=== PATIENT | female | born 1955 | race Caucasian/White ===

== ENCOUNTER 2024-09-02 08:09 | Day surgery (SDC) | payer MEDICARE, OTHER ==
[2024-08-31 09:46] LABS: BASOPHILS % (AUTO) 1.2 % (0-1); EOSINOPHILS # (AUTO) 0.1 X10'3 (0-0.9); EOSINOPHILS % (AUTO) 3.6 % (0-6); LYMPHOCYTES # (AUTO) 1.6 X10'3 (1.1-4.8); LYMPHOCYTES % (AUTO) 46.6 % (21-51); MEAN CORPUSCULAR HEMOGLOBIN 33.5 PG (27.0-31.0); MEAN CORPUSCULAR VOLUME 98.5 FL (78-98); MEAN PLATELET VOLUME 6.9 FL (7.4-10.4); MONOCYTES # (AUTO) 0.3 X10'3 (0-0.9); MONOCYTES % (AUTO) 7.9 % (2-12); NEUTROPHILS # (AUTO) 1.4 X10'3 (1.8-7.7); NEUTROPHILS % (AUTO) 40.7 % (42-75); PRE OP HEMATOCRIT 39.6 % (35.0-45.0); PRE OP HEMOGLOBIN 13.5 g/dL (12.0-16.0); PRE OP PLATELET COUNT 279 X10'3 (140-440); PRE OP WHITE BLOOD COUNT 3.5 10'3 (4.8-10.8); RED BLOOD COUNT 4.02 X10'6 (4.20-5.60); RED CELL DISTRIBUTION WIDTH 12.9 % (11.5-14.5)
[2024-08-31 09:58] LABS: ALBUMIN 3.9 G/DL (3.4-5.0); ALBUMIN/GLOBULIN RATIO 1.1 (1.1-1.5); ALKALINE PHOSPHATASE 104 IU/L (46-116); BLOOD UREA NITROGEN 13 MG/DL (7-18); BUN/CREATININE RATIO 17.6 (10.0-20.0); CALCIUM 9.1 MG/DL (8.5-10.1); CHLORIDE 105 MMOL/L (99-107); CREATININE 0.74 MG/DL (0.40-0.90); PRE OP ALT 38 U/L (30-65); PRE OP ANION GAP 4 (8-16); PRE OP AST 26 U/L (10-37); PRE OP BILIRUB, TOTAL 0.5 MG/DL (0.0-1.0); PRE OP GLUCOSE 100 MG/DL (70-104); PRE OP POTASSIUM 4.4 MMOL/L (3.4-5.1); PRE OP SODIUM 142 MMOL/L (135-145); TOTAL CARBON DIOXIDE 33.2 MMOL/L (24-32); TOTAL PROTEIN 7.3 G/DL (6.4-8.2); eGFR 78 ML/MIN
[2024-09-02] VITALS (8 sets, daily range): BP systolic 121–146; BP diastolic 65–104; PULSE 57–72; RESP 11–16; TEMP 97.6; O2SAT 93–100
[~2024-09-02] VITALS: Ht 175.3 cm; Wt 88.3 kg
[2024-09-02] MEDS: ceFAZolin 2gm in dextrose, iso 50 ML IV ONE (05:30)
[~2024-09-02 08:09] MED LIST: ARIP5TAB53 PO; BUSP7.5T5 PO; CARV3.1244 PO; DOCUMENT DATE & TIME OF BETA-BLOCKER PO ONE; DULO60CA65 PO; ESZO2TAB31 PO; ROSU10TA72 PO; TRAZ150T78 PO; VIT D
[2024-09-02] MEDS: ringers solution, lacted 1,000 ML IV SCH ×2 (08:41→12:05)
[2024-09-02] MEDS: famotidine 20mg tablet PO ONE (08:41)
[2024-09-02] MEDS ORDERED: LIDOcaine 1% (10mg/ml)w/preservative inj. 20ml MDV ONE (10:06)
[2024-09-02] MEDS ORDERED: BUPIVAcaine 2.5mg/ml inj 50ml vial (contains preservative) ONE (10:06)
[2024-09-02] MEDS ORDERED: desflurane 240ml liquid inh. IH ONE (10:12)
[2024-09-02] MEDS ORDERED: fentaNYL/PF 50MCG/1 ML 2ML syringe ONE (10:17)
[2024-09-02] MEDS: BUPIVAcaine/PF 2.5 mg/ml (0.25%) 30ml vial IJ ONE (10:55)
[2024-09-02] MEDS ORDERED: propofol inj 20 ML IV ONE (11:00)
[2024-09-02] MEDS ORDERED: ketorolac trometh 30MG/ML vial 30 MG/ML VIAL ONE (11:01)
[2024-09-02] MEDS ORDERED: ondansetron/PF 4mg/2ml inj ONE (11:01)
[2024-09-02] MEDS ORDERED: acetaminophen 1,000mg/100ml IV 100 ML IV ONE (11:01)
[2024-09-02] MEDS ORDERED: dexamethasone sod phosphate 4mg/ml inj. ONE (11:01)
[2024-09-02] MEDS ORDERED: labetalol 20mg/4ml (5mg/ml) syringe IV PRN (12:05)
[2024-09-02] MEDS ORDERED: HYDROmorphone/PF 0.2 MG/ML SYRINGE IV PRN ×2 (12:05)
[2024-09-02] MEDS ORDERED: proCHLORperazine 10 MG/2 ml inj IV PRN (12:05)
[2024-09-02] MEDS ORDERED: ondansetron/PF 4mg/2ml inj IV PRN (12:05)
[2024-09-02] MEDS ORDERED: hydrALAZINE 20mg/ml inj. IV PRN (12:05)
== END 2024-09-02 13:04 | disposition home or self-care (01) ==
LOC: PAS 08:09
PROVIDERS: ATTEND Surgery
DX: C50.111 Malignant neoplasm of central portion of right female breast (principal); I10 Essential (primary) hypertension; E78.5 Hyperlipidemia, unspecified; F32.A Depression, unspecified; Z79.899 Other long term (current) drug therapy; Z98.51 Tubal ligation status; Z72.89 Other problems related to lifestyle; Z98.890 Other specified postprocedural states
CPT/HCPCS: 19301; 36415; 38525; 38792; 80053; 82948; 85025; 88307; 88342; 93005; A4215; A4618; A6402; A7000; J0131; J0690; J1100; J1885; J2003; J2405; J2704; J3010; J3490; J7030; J7120; Z7506; Z7508; Z7512; Z7610; A6449